=== PATIENT | female | born 1965 | race Caucasian/White ===

== ENCOUNTER → 2017-03-08 | Outpatient (CLI) | payer MEDICARE ==
--- NOTE | 2017-03-08 21:12 | EKG REPORT ---
SEVERITY:- NORMAL ECG - SINUS RHYTHM : Confirmed by: Danny Navarro MD 08-Mar-2017 21:11:56
== END ==
LOC: OD 12:58
PROVIDERS: ATTEND Physician Assistant Medical
DX: Z79.899 Other long term (current) drug therapy (principal)
CPT/HCPCS: 93005; 93010

== ENCOUNTER → 2017-05-25 | Outpatient (CLI) | payer MEDICARE ==
[2017-05-25 17:12] LABS: ABSOLUTE BASOPHILS # (AUTO) 0.1 10^3/uL (0.0-0.2); ABSOLUTE EOSINOPHILS # (AUTO) 0.2 10^3/uL (0.0-0.6); ABSOLUTE LYMPHOCYTES (AUTO) 3.1 10^3/uL (0.5-4.7); ABSOLUTE MONOCYTES (AUTO) 0.4 10^3/uL (0.1-1.4); ABSOLUTE NEUT (AUTO) 3.6 10^3/uL (1.7-8.2); BASOPHILS % (AUTO) 1.1 % (0-2); EOSINOPHILS % (AUTO) 2.3 % (0-6); HEMATOCRIT 41.8 % (36.0-47.0); HEMOGLOBIN 14.4 g/dL (12.0-15.5); HGB HCT DIFFERENCE 1.4; MEAN CORPUSCULAR HEMOGLOBIN 29.8 pg (27.0-33.4); MEAN CORPUSCULAR HGB CONC 34.5 g/dL (32.0-36.0); MEAN CORPUSCULAR VOLUME 86 fl (80-97); MONOCYTES % (AUTO) 5.6 % (3-13); RED BLOOD COUNT 4.85 10^6/uL (3.72-5.28); RED CELL DISTRIBUTION WIDTH 13.3 % (11.5-14.0); WHITE BLOOD COUNT 7.3 10^3/uL (4.0-10.5)
[2017-05-25 17:22] LABS: PROTHROMBIN TIME 12.8 SEC (11.4-15.4)
[2017-05-25 17:23] LABS: PARTIAL THROMBOPLASTIN TIME 50.2 SEC (23.5-35.8)
[2017-05-25 17:43] LABS: ANION GAP 11 (5-19); BLOOD UREA NITROGEN 13 mg/dL (7-20); CALCIUM 9.6 mg/dL (8.4-10.2); CARBON DIOXIDE 29 mmol/L (22-30); CHLORIDE 103 mmol/L (98-107); CREATININE RESULT 0.83 mg/dL (0.52-1.25); GLUCOSE 85 mg/dL (75-110); POTASSIUM 3.9 mmol/L (3.6-5.0); SODIUM 142.8 mmol/L (137-145)
== END ==
LOC: OD 15:54
PROVIDERS: ATTEND Internal Medicine Critical Care Medicine
DX: R04.2 Hemoptysis (principal); Z87.09 Personal history of other diseases of the respiratory system; R91.8 Other nonspecific abnormal finding of lung field; F11.90 Opioid use, unspecified, uncomplicated; M54.9 Dorsalgia, unspecified
CPT/HCPCS: 36415; 80048; 85025; 85610; 85730

== ENCOUNTER 2017-05-26 10:20 | Day surgery (SDC) | payer MEDICARE ==
[~2017-05-26 10:20] MED LIST: EPINEPHRINE INJ 1 MG/10 ML DISP.SYRIN ONE; EPINEPHRINE INJ/PF 1 MG/1 ML AMPULE ONE; FLUMAZENIL INJ 0.5 MG/5 ML VIAL ONE; LIDOCAINE 2% INJ (20 MG/ML) 20 ML MDV ONE; LIDOCAINE 2% JELLY 30 ML TUBE ONE; NALOXONE HCL INJ/PF 0.4 MG/1 ML SDV ONE
--- NOTE | 2017-05-26 12:25 | EKG REPORT ---
SEVERITY:- NORMAL ECG - SINUS RHYTHM : Confirmed by: Lavonne Rizzo MD 26-May-2017 12:23:56
[2017-05-26] MEDS: MIDAZOLAM 2 MG/2 ML INJ ONE ×8 (12:57→13:09)
[2017-05-26] MEDS: FENTANYL CITRATE INJ/PF 100 MCG/2 ML AMPUL ONE ×2 (13:04→13:06)
--- NOTE | 2017-05-26 13:56 | OPERATIVE REPORT E ---
Operative Report NAME: DANIELLE EL : 1965 AGE: 51Y DATE OF SURGERY: 05/26/2017 ROOM: BRIEF HISTORY: Patient is a 51-year-old male with past medical history of chronic methadone use and smoking history, presenting with hemoptysis about 1 *------* about 2-3 weeks ago. *------* showing diffuse pulmonary infiltrates bilaterally and bibasilarly. She does not have any recurrence of hemoptysis, feeling well. No fever. No increased cough or purulent sputum production. Patient underwent flexible bronchoscopy today with bronchial washing and bronchioalveolar lavage. SURGEON: JOSH BALDWIN M.D. PREOPERATIVE DIAGNOSES: 1. Hemoptysis. 2. Diffuse pulmonary infiltrate bilaterally. POSTOPERATIVE FINDINGS: No endobronchial lesions. No lesions on the trachea, mainstem bronchi, and segmental bronchi and no lesions on the vocal cords and supraglottic areas. ESTIMATED BLOOD LOSS: None. COMPLICATIONS: None. SPECIMENS REMOVED: Bronchial washing both lungs. Bronchioalveolar lavage involving the right middle lobe first container and the left upper lobe lingular segment second container. PROCEDURE: Flexible bronchoscopy by bronchial washing and bronchoalveolar lavage right middle lobe and left upper lobe lingular segment. DESCRIPTION OF PROCEDURE: Consent was obtained from the patient. The patient verbalized understanding of indication, risks, and possible complications of the procedure. Patient was connected to the case monitor. Pulse oximetry, respiratory monitor, blood pressure monitor, and oxygen saturation monitoring. Total of 2% lidocaine solution 5 mL was given via nebulizer and 2% lidocaine solution 3 mL was given via atomizer through the posterior pharyngeal area and 2% lidocaine gel was applied using a cotton swab on the tonsillar pharyngeal area and the posterior pharynx. Flexible bronchoscope was inserted through the mouth guard. Lidocaine 1% solution in aliquots of 2 mL was given as the bronchoscope was advanced through the vocal cords, wind pipe, beti, and the segmental airways. The vocal cords appeared normal. Versed was given at increments of 0.5 mg to a total dose of 4 mg and fentanyl was given at increments of 25 mcg to a total dose of 50 mcg. Lidocaine 2% solution was used as topical anesthesia to a total dose of 20 mL. The trachea appeared normal and beti was sharp in the midline. Mainstem bronchus was normal. No lesions noted. Right upper lobe bronchi and right middle lobe bronchi and right lower lobe bronchi appeared normal. Left upper lobe bronchi, lingular bronchi, and the left lower lobe appeared normal. No endobronchial lesions noted. Bronchial washing was performed on both lungs. Bronchial washing will be sent for cytology, fungal bacteria, and AFB cultures. Bronchioalveolar lavage was performed on the right middle lobe and in the left upper lobe lingula segment and will be sent for cytology. Patient tolerated the procedure very well and no immediate postoperative complications noted. DICTATING PHYSICIAN: JOSH BALDWIN M.D. [id number] PHY#: [id number] ID: [id number] JOB#: [id number] ACCT: [id number] cc:JOSH BALDWIN M.D. >
[2017-05-26 14:58] VITALS: BP 112/68
== END 2017-05-26 14:50 | disposition home or self-care (01) ==
LOC: OROUT 10:20
PROVIDERS: ATTEND Internal Medicine Critical Care Medicine
PROC: 0B948ZX Drainage of Right Upper Lobe Bronchus, Via Natural or Artificial Opening Endoscopic, Diagnostic (ICD-10-PCS; 2017-05-26)
PROC: 0B958ZX Drainage of Right Middle Lobe Bronchus, Via Natural or Artificial Opening Endoscopic, Diagnostic (ICD-10-PCS; principal; 2017-05-26 12:00)
DX: R04.2 Hemoptysis (principal); R91.8 Other nonspecific abnormal finding of lung field
CPT/HCPCS: 31624; 87070; 87205; 87206; 87116; 87101; 87015; 88162; 88104 ×2; 93005; 93010; J2250; J3490; J3010; J0171; J2310

== ENCOUNTER → 2017-06-07 | Outpatient (CLI) | payer MEDICARE ==
[2017-06-07 16:49] LABS: APPEARANCE,URINE CLEAR; BILIRUBIN,URINE NEGATIVE (NEGATIVE); GLUCOSE, URINE NEGATIVE (NEGATIVE); KETONES,URINE NEGATIVE (NEGATIVE); LEUKOCYTE ESTERASE,URINE NEGATIVE (NEGATIVE); NITRITE,URINE NEGATIVE (NEGATIVE); PROTEIN,URINE NEGATIVE (NEGATIVE); URINE SPECIFIC GRAVITY 1.003; UROBILINOGEN,URINE NEGATIVE mg/dL (<2.0)
[2017-06-09 13:39] LABS: ANTI-SS-B AB SJOGREN'S <0.2 AI (0.0-0.9)
[2017-06-09 16:09] LABS: DNA DOUBLE STRAND ANTIBODY <1 IU/mL (0-9)
[2017-06-10 12:38] LABS: CYTOPLASMIC (C-ANCA) <1:20 titer (Neg:<1:20)
== END ==
LOC: OD 15:37
PROVIDERS: ATTEND Internal Medicine Critical Care Medicine
DX: R04.2 Hemoptysis (principal); Z87.09 Personal history of other diseases of the respiratory system; F11.90 Opioid use, unspecified, uncomplicated; R91.8 Other nonspecific abnormal finding of lung field
CPT/HCPCS: 36415; 81001; 85652; 86021; 86038; 86140; 86225; 86235; 86430

== ENCOUNTER → 2018-01-06 | Outpatient (CLI) | payer MEDICARE ==
--- NOTE | 2018-01-06 14:42 | RADIOLOGY REPORT (SQ) ---
EXAM DESCRIPTION: CT HEAD WITHOUT COMPLETED DATE/TIME: 01/06/2018 1:00 pm REASON FOR STUDY: HEADAHE (R51) R51 HEADACHE COMPARISON: None. TECHNIQUE: Axial images acquired through the brain without intravenous contrast. Images reviewed wi th bone, brain and subdural windows. Additional sagittal and coronal reconstructions were generated. Images stored on PACS. All CT scanners at this facility use dose modulation, iterative reconstruction, and/or weight based d osing when appropriate to reduce radiation dose to as low as reasonably achievable (ALARA). [facility]: Dose Right [facility]: CareDose [facility]: Dose Right [facility]: Teradose 4D [facility]: [employer] RADIATION DOSE: CT Rad equipment meets quality standard of care and radiation dose reduction techniq ues were employed. CTDIvol: 48.7 mGy. DLP: 980 mGy-cm. mGy. LIMITATIONS: None. FINDINGS: VENTRICLES: Normal size and contour. CEREBRUM: No masses. No hemorrhage. No midline shift. No evidence for acute infarction. Normal gra y/white matter differentiation. No areas of low density in the white matter. CEREBELLUM: No masses. No hemorrhage. No alteration of density. No evidence for acute infarction. EXTRAAXIAL SPACES: No fluid collections. No masses. ORBITS AND GLOBE: No intra- or extraconal masses. Normal contour of globe without masses. CALVARIUM: No fracture. PARANASAL SINUSES: No fluid or mucosal thickening. SOFT TISSUES: No mass or hematoma. OTHER: No other significant finding. IMPRESSION: NORMAL BRAIN CT WITHOUT CONTRAST. EVIDENCE OF ACUTE STROKE: NO. COMMENT: Quality ID # 436: Final reports with documentation of one or more dose reduction techniques (e.g., Automated exposure control, adjustment of the mA and/or kV according to patient size, use of iterative reconstruction technique) TECHNICAL DOCUMENTATION: JOB ID: [id number] [employer]- All Rights Reserved Reading location - IP/workstation name: [email or web address]
== END ==
LOC: RAD 12:49
PROVIDERS: ATTEND Physician Assistant
DX: R51 Headache (principal)
CPT/HCPCS: 70450

== ENCOUNTER → 2018-02-09 | Outpatient (CLI) | payer MEDICARE ==
--- NOTE | 2018-02-09 10:28 | RADIOLOGY REPORT (SQ) ---
EXAM DESCRIPTION: CT CERVICAL SPINE WITHOUT COMPLETED DATE/TIME: 02/09/2018 9:07 am REASON FOR STUDY: CERVICALGIA (M54.2), HEADACHE (R51) R51 HEADACHE COMPARISON: CT brain 01/06/2018 TECHNIQUE: Axial images acquired through the cervical spine without intravenous contrast. Images re viewed with lung, soft tissue and bone windows. Reconstructed coronal and sagittal MPR images review ed. Images stored on PACS. All CT scanners at this facility use dose modulation, iterative reconstruction, and/or weight based d osing when appropriate to reduce radiation dose to as low as reasonably achievable (ALARA). [facility]: Dose Right [facility]: CareDose [facility]: Dose Right [facility]: Teradose 4D [facility]: [employer] RADIATION DOSE: CT Rad equipment meets quality standard of care and radiation dose reduction techniq ues were employed. CTDIvol: 18.2 mGy. DLP: 421 mGy-cm. mGy. LIMITATIONS: None. FINDINGS: ALIGNMENT: Anatomic. MINERALIZATION: Normal. VERTEBRAL BODIES: No fractures or dislocation. There is an incompletely fused posterior arch of C1, an anatomic variant. DISCS: No significant disc disease. No significant central or foraminal stenosis. FACETS, LATERAL MASSES, POSTERIOR ELEMENTS: No fractures. No dislocation. No acute findings. HARDWARE: None in the spine. VISUALIZED RIBS: No fractures. LUNG APICES AND SOFT TISSUES: No significant or acute findings. OTHER: No other significant finding. IMPRESSION: NO ACUTE OR SIGNIFICANT FINDINGS IN THE CERVICAL SPINE. TECHNICAL DOCUMENTATION: JOB ID: [id number] Quality ID # 436: Final reports with documentation of one or more dose reduction techniques (e.g., Au tomated exposure control, adjustment of the mA and/or kV according to patient size, use of iterative reconstruction technique) 2010 [employer]- All Rights Reserved Reading location - IP/workstation name: [email or web address]
== END ==
LOC: RAD 08:26
PROVIDERS: ATTEND Nurse Practitioner Family
DX: M54.2 Cervicalgia (principal); R51 Headache
CPT/HCPCS: 72125

== ENCOUNTER 2018-12-07 08:47 | Day surgery (SDC) | payer MEDICARE ==
[2018-12-07 09:48] LABS: INTERNATIONAL RATION (INR) 0.87; PROTHROMBIN TIME 12.3 SEC (11.4-15.4)
[2018-12-07 09:50] LABS: PARTIAL THROMBOPLASTIN TIME 47.3 SEC (23.5-35.8)
--- NOTE | 2018-12-07 11:17 | RADIOLOGY REPORT (SQ) ---
EXAM DESCRIPTION: T SPINE AP/LAT COMPLETED DATE/TIME: 12/07/2018 11:06 am REASON FOR STUDY: LOW BACK PAIN, CHRONIC PAIN DISORDER,CERVICALGIA M54.5 LOW BACK PAIN G89.4 CHRON IC PAIN SYNDROME M54.2 CERVICALGIA COMPARISON: None. NUMBER OF VIEWS: Two views. TECHNIQUE: AP and lateral radiographic images acquired of the thoracic spine. LIMITATIONS: None. FINDINGS: MINERALIZATION: Normal. ALIGNMENT: Normal. No scoliosis. VERTEBRAE: No fracture or bone lesion. Maintained height, normal segmentation. DISCS: No significant loss of height or significant narrowing. No large osteophytes. HARDWARE: None in the spine. MEDIASTINUM AND SOFT TISSUES: Normal heart size and aortic contour. No soft tissue abnormality. VISUALIZED LUNG FARMER: Clear. OTHER: Neural stimulating catheter, leads overlying the dorsal mid-lower thoracic spine. IMPRESSION: 1. NO SIGNIFICANT RADIOGRAPHIC FINDING IN THE THORACIC SPINE. TECHNICAL DOCUMENTATION: JOB ID: [id number] [employer]- All Rights Reserved Reading location - IP/workstation name: [email or web address]
--- NOTE | 2018-12-07 13:39 | RADIOLOGY REPORT (SQ) ---
EXAM DESCRIPTION: CT CERVICAL SPINE WITH COMPLETED DATE/TIME: 12/07/2018 12:38 pm REASON FOR STUDY: LOW BACK PAIN.CHRONIC PAIN DISORDER, CERVICALGIA M54.5 LOW BACK PAIN G89.4 CHRON IC PAIN SYNDROME M54.2 CERVICALGIA COMPARISON: None. TECHNIQUE: A postmyelographic axial images acquired through the cervical spine without intravenous c ontrast. Images reviewed with lung, soft tissue and bone windows. Reconstructed coronal and sagitta l MPR images reviewed. Images stored on PACS. All CT scanners at this facility use dose modulation, iterative reconstruction, and/or weight based d osing when appropriate to reduce radiation dose to as low as reasonably achievable (ALARA). [facility]: Dose Right [facility]: CareDose [facility]: Dose Right [facility]: Teradose 4D [facility]: [employer] RADIATION DOSE: CT Rad equipment meets quality standard of care and radiation dose reduction techniq ues were employed. CTDIvol: 17.3 mGy. DLP: 348 mGy-cm. mGy. LIMITATIONS: None. FINDINGS: ALIGNMENT: Anatomic. MINERALIZATION: Normal. VERTEBRAL BODIES: No fractures or dislocation. DISCS: C1-2: No significant craniocervical junction narrowing. Mild arthropathy. C2-3: No suggestion of significant disc bulge or hernia or stenosis. C3-4: No stenosis. C4-5: Minimal disc bulge without impingement or stenosis. C5-6: Mild disc bulge without impingement or stenosis. C6-7: Mild disc bulge without impingement or stenosis. C7-T1: No stenosis. FACETS, LATERAL MASSES, POSTERIOR ELEMENTS: No fractures. No dislocation. No acute findings. HARDWARE: None in the spine. VISUALIZED RIBS: No fractures. LUNG APICES AND SOFT TISSUES: Mild paraseptal bullous changes in the apices. OTHER: No other significant finding. IMPRESSION: 1. Mild spondylosis but no evidence of significant cord impingement or stenosis. TECHNICAL DOCUMENTATION: JOB ID: [id number] Quality ID # 436: Final reports with documentation of one or more dose reduction techniques (e.g., Au tomated exposure control, adjustment of the mA and/or kV according to patient size, use of iterative reconstruction technique) 2010 [employer]- All Rights Reserved Reading location - IP/workstation name: [email or web address]
--- NOTE | 2018-12-07 14:19 | RADIOLOGY REPORT (SQ) ---
EXAM DESCRIPTION: CT LUMBAR SPINE WITH COMPLETED DATE/TIME: 12/07/2018 12:38 pm REASON FOR STUDY: LOW BACK PAIN.CHRONIC PAIN DISORDER, CERVICALGIA M54.5 LOW BACK PAIN G89.4 CHRON IC PAIN SYNDROME M54.2 CERVICALGIA COMPARISON: None. TECHNIQUE: After performing lumbar myelogram, axial images were acquired through the lumbar spine wi thout intravenous contrast. Images reviewed with lung, soft tissue and bone windows. Reconstructed coronal and sagittal MPR images reviewed. All images stored on PACS. All CT scanners at this facility use dose modulation, iterative reconstruction, and/or weight based d osing when appropriate to reduce radiation dose to as low as reasonably achievable (ALARA). [facility]: Dose Right [facility]: CareDose [facility]: Dose Right [facility]: Teradose 4D [facility]: [employer] RADIATION DOSE: mGy. LIMITATIONS: None. FINDINGS: SEGMENTATION: Normal. No transitional anatomy. ALIGNMENT: Normal. VERTEBRAL BODIES: No fractures. No dislocation. No acute findings. HARDWARE: Disc fixation device at L4-5. DISCS: L1-L2: No significant protrusions. No significant stenosis. L2-L3: No significant protrusions. No significant stenosis. L3-L4: Posterior ligament thickening and slight facet overgrowth. Broad mild disc bulge without impi ngement. Mild -moderate central stenosis. Grossly moderate bilateral foraminal stenosis. L4-L5: Operative level. No disc bulge or recurrent hernia. Dorsal decompression. Widely patent bree tral canal. No suggestion of significant foraminal stenosis. L5-S1: Right paracentral protrusion mildly impinges on the right S1 nerve root. Mild posterior ligam ent thickening with slight facet arthropathy. Relatively mild bilateral foraminal narrowing. PEDICLES, TRANSVERSE PROCESSES: No fractures. No dislocation. No acute findings. FACETS, POSTERIOR ELEMENTS: No fractures. No dislocation. No spinal stenosis. VISUALIZED RIBS: No fractures. SOFT TISSUES: No significant or acute finding in adjacent soft tissues. OTHER: No other significant finding. IMPRESSION: 1. At the L5-S1 level, there is a small focal disc hernia mildly impinging on the right S1 nerve root . 2. At the L3-4 level, there is mild -moderate central stenosis. 3. Dorsal decompression at L4-5 without stenosis or gross recurrent disc bulge or hernia. COMMENT: Patient medication list reviewed: TECHNICAL DOCUMENTATION: JOB ID: [id number] Quality ID # 436: Final reports with documentation of one or more dose reduction techniques (e.g., Au tomated exposure control, adjustment of the mA and/or kV according to patient size, use of iterative reconstruction technique) 2010 [employer]- All Rights Reserved Reading location - IP/workstation name: [email or web address]
[2018-12-07 14:35] VITALS: BP 130/69
--- NOTE | 2018-12-07 14:44 | RADIOLOGY REPORT (SQ) ---
EXAM DESCRIPTION: MYELOGRAM 2 OR MORE LEVELS; MYELOGRAM LUMBAR COMPLETED DATE/TIME: 12/07/2018 12:13 pm REASON FOR STUDY: LOW BACK PAIN, CHRONIC PAIN DISORDER,CERVICALGIA M54.5 LOW BACK PAIN G89.4 CHRON IC PAIN SYNDROME M54.2 CERVICALGIA COMPARISON: None. FLUOROSCOPY TIME: 2.3 seconds 26 images saved to PACS. TECHNIQUE: Fluoroscopic guided lumbar myelogram. LIMITATIONS: None. PROCEDURE: After written consent and assessment were obtained, the patient was brought into the fluo roscopy room and placed prone on the table. The patient's lower back was prepped in a sterile fashio n and an entry site was selected under live fluoroscopic guidance. The entry site was anesthetized wi th 1% lidocaine. The spinal needle was advanced through the skin and into the thecal sac at the leve l of L2-3. Contrast was injected into the thecal sac. Following the procedure the needle was remove d and a sterile bandage was placed of the site. CONTRAST: 10 CC Omnipaque 300. IMAGES ACQUIRED: 26 images of the lumbar and cervical spine were obtained FINDINGS: Contrast is present in the thecal sac. PLEASE SEE SAME-DAY CT FOR DETAILED DESCRIPTION. IMPRESSION: LUMBAR MYELOGRAM PERFORMED FOR CT MYELOGRAPHY OF THE CERVICAL AND LUMBAR SPINE. PLEASE REFER TO THE REPORT OF THE CT MYELOGRAM FOR DETAILED DIAGNOSTIC EVALUATION. COMMENT: Patient medication list reviewed: Yes- Quality ID# 130:Eligible professional attests to doc umenting in the medical record they obtained, updated, or reviewed the patient's current medications. . Quality ID 145: Final reports for procedures using fluoroscopy that document radiation exposure diane latasha, or exposure time and number of fluorographic images (if radiation exposure indices are not avail able) TECHNICAL DOCUMENTATION: JOB ID: [id number] [employer]- All Rights Reserved Reading location - IP/workstation name: [email or web address]
== END 2018-12-07 14:00 | disposition home or self-care (01) ==
LOC: RAD 08:47
PROVIDERS: ATTEND Anesthesiology Pain Medicine
DX: M54.5 Low back pain (principal); G89.4 Chronic pain syndrome; M54.2 Cervicalgia; Z79.01 Long term (current) use of anticoagulants
CPT/HCPCS: 36415; 72070; 72126; 72132; 72265; 72270; 85610; 85730